=== PATIENT | female | born 1945 | race Caucasian/White ===

== ENCOUNTER 2017-01-12 09:36 | Inpatient (IN) | payer MEDICARE ==
[~2017-01-12] VITALS: Ht 167.6 cm; Wt 89.1 kg
[2017-01-12] MEDS ORDERED: ATOR20TA9 PO (10:27)
[2017-01-12] MEDS ORDERED: ALPR1TAB2 PO (10:27)
[2017-01-12] MEDS ORDERED: SODIUM CHLORIDE FLUSH 10ML SYR IVF ONE (10:30)
[2017-01-12] MEDS ORDERED: LOPERAMIDE 2 MG CAPSULE PO ONE (10:30)
[2017-01-12] MEDS ORDERED: ONDANSETRON 2MG/ML, 2ML IVPush ONE (10:30)
[2017-01-12] MEDS ORDERED: SODIUM CHLORIDE 0.9% 1,000ML IVBOLUS ONE ×2 (10:30)
[2017-01-12 10:34] LABS: HEMATOCRIT 38.9 % (34.6-47.8); HEMOGLOBIN 13.1 g/dL (11.7-16.4); WHITE BLOOD COUNT 15.9 x10^3/uL (3.4-10)
[2017-01-12 10:40] LABS: ASPARTATE AMINO TRANSFERASE 20 U/L (15-37); BLOOD UREA NITROGEN 17 mg/dL (7-18)
[2017-01-12] MEDS ORDERED: LOPERAMIDE 2 MG CAPSULE ONE (11:02)
[2017-01-12] MEDS ORDERED: ONDANSETRON 2MG/ML, 2ML ONE (11:03)
[2017-01-12] MEDS ORDERED: MORPHINE SULFATE 4 MG/ML, 1ML ONE (11:03)
[2017-01-12] MEDS ORDERED: MORPHINE SULFATE 4 MG/ML, 1ML IVPush ONE (12:00)
[2017-01-12] MEDS ORDERED: hydrALAzine 20 MG/ML, 1ML IVPush PRN (13:00)
[2017-01-12] MEDS ORDERED: MORPHINE SULFATE 4 MG/ML, 1ML IVPush PRN (14:00)
[2017-01-12] MEDS ORDERED: ONDANSETRON 2MG/ML, 2ML IVPush PRN (14:00)
[2017-01-12 14:15] VITALS: BP 101/58
[2017-01-12] MEDS: SODIUM CHLORIDE 0.9% 1,000 ML IV SCH ×2 (16:03→22:38)
[2017-01-12] MEDS: LOPERAMIDE 2 MG CAPSULE PO SCH ×2 (18:22→23:46)
[2017-01-12] MEDS: ENOXAPARIN 40 MG/0.4 ML SQ SCH (18:23)
[2017-01-12 19:40] VITALS: BP 102/65
[2017-01-12] MEDS: PANTOPRAZOLE 40 MG IV IVPush SCH (22:38)
[2017-01-12] MEDS: LORazepam 0.5MG TABLET PO PRN (23:45)
[2017-01-13 01:45] VITALS: BP 103/69
[2017-01-13] MEDS: SODIUM CHLORIDE 0.9% 1,000 ML IV SCH ×3 (04:42→18:49)
[2017-01-13] MEDS: LOPERAMIDE 2 MG CAPSULE PO SCH ×4 (05:45→23:23)
[2017-01-13 05:52] LABS: HEMATOCRIT 30.1 % (34.6-47.8); HEMOGLOBIN 10.1 g/dL (11.7-16.4); WHITE BLOOD COUNT 5.6 x10^3/uL (3.4-10)
[2017-01-13 05:58] LABS: ASPARTATE AMINO TRANSFERASE 17 U/L (15-37); BLOOD UREA NITROGEN 10 mg/dL (7-18)
[2017-01-13 07:16] VITALS: BP 107/66
[2017-01-13] MEDS: PANTOPRAZOLE 40 MG IV IVPush SCH ×2 (09:13→21:15)
[2017-01-13 13:09] VITALS: BP 101/56
[2017-01-13] MEDS: ENOXAPARIN 40 MG/0.4 ML SQ SCH (13:30)
[2017-01-13 20:02] VITALS: BP 107/67
[2017-01-13] MEDS: LORazepam 0.5MG TABLET PO PRN (23:20)
[2017-01-14] MEDS: SODIUM CHLORIDE 0.9% 1,000 ML IV SCH ×4 (01:16→20:58)
[2017-01-14 02:45] VITALS: BP 99/54
[2017-01-14] MEDS: LOPERAMIDE 2 MG CAPSULE PO SCH ×4 (05:44→22:54)
[2017-01-14 07:45] VITALS: BP 126/69
[2017-01-14] MEDS: PANTOPRAZOLE 40 MG IV IVPush SCH ×2 (08:17→20:58)
[2017-01-14] MEDS ORDERED: ONDA4TAB13 SL (08:22)
[2017-01-14] MEDS ORDERED: LOPE2CAP PO (08:22)
[2017-01-14] MEDS ORDERED: OMEP-110 PO (08:33)
[2017-01-14] MEDS ORDERED: TRAM-47 PO (08:33)
[2017-01-14] MEDS ORDERED: OMNIPAQUE 350 MG/ML, 100ML BOTTLE ONE (08:55)
[2017-01-14] MEDS: ENOXAPARIN 80 MG/0.8 ML SQ SCH ×2 (12:06→22:54)
[2017-01-14 12:22] VITALS: BP 138/77
[2017-01-14] MEDS ORDERED: ALPRazolam 1MG TABLET ONE (12:47)
[2017-01-14] MEDS: ALPRazolam 1MG TABLET PO PRN ×2 (12:49→23:07)
[2017-01-14] MEDS: WARFARIN 5 MG TABLET PO-COUM SCH (18:00)
[2017-01-14 19:55] VITALS: BP 104/66
[2017-01-14] MEDS: LORazepam 0.5MG TABLET PO PRN (23:07)
[2017-01-15] MEDS: LEVOTHYROXINE 88 MCG TABLET PO SCH (06:00)
[2017-01-15] MEDS: LOPERAMIDE 2 MG CAPSULE PO SCH ×3 (06:13→18:02)
[2017-01-15 06:24] LABS: HEMATOCRIT 28.6 % (34.6-47.8); HEMOGLOBIN 9.8 g/dL (11.7-16.4); WHITE BLOOD COUNT 5.3 x10^3/uL (3.4-10)
[2017-01-15 06:47] LABS: BLOOD UREA NITROGEN 4 mg/dL (7-18)
[2017-01-15 08:08] VITALS: BP 103/66
[2017-01-15] MEDS: SODIUM CHLORIDE 0.9% 1,000 ML IV SCH (09:00)
[2017-01-15] MEDS: PANTOPRAZOLE 40 MG IV IVPush SCH ×2 (09:29→21:53)
[2017-01-15] MEDS: ENOXAPARIN 80 MG/0.8 ML SQ SCH ×2 (10:43→21:55)
[2017-01-15] MEDS: POTASSIUM CHLORIDE 20 MEQ TAB.ER.PRT PO SCH ×2 (10:43→13:11)
[2017-01-15] MEDS ORDERED: OXYcodone/APAP 5/325MG TABLET PO PRN (11:00)
[2017-01-15 15:21] VITALS: BP 113/73
[2017-01-15] MEDS: WARFARIN 5 MG TABLET PO-COUM SCH (18:03)
[2017-01-15 19:36] VITALS: BP 117/72
[2017-01-16] MEDS: LOPERAMIDE 2 MG CAPSULE PO SCH ×5 (00:01→23:29)
[2017-01-16] MEDS: ALPRazolam 1MG TABLET PO PRN ×2 (00:01→23:30)
[2017-01-16 03:00] VITALS: BP 125/73
[2017-01-16 05:41] LABS: BLOOD UREA NITROGEN 5 mg/dL (7-18)
[2017-01-16] MEDS: LEVOTHYROXINE 88 MCG TABLET PO SCH (05:42)
[2017-01-16 08:20] VITALS: BP 129/62
[2017-01-16] MEDS: PANTOPRAZOLE 40 MG IV IVPush SCH ×2 (10:07→21:45)
[2017-01-16] MEDS: ENOXAPARIN 80 MG/0.8 ML SQ SCH ×2 (10:07→23:29)
[2017-01-16] MEDS ORDERED: POTASSIUM CHLORIDE 20 MEQ TAB.ER.PRT PO ONE (11:30)
[2017-01-16 13:14] VITALS: BP 137/79
[2017-01-16] MEDS: WARFARIN 5 MG TABLET PO-COUM SCH (18:19)
[2017-01-16 19:17] VITALS: BP 109/64
[2017-01-17 03:59] VITALS: BP 120/69
[2017-01-17 05:17] LABS: BLOOD UREA NITROGEN 7 mg/dL (7-18)
[2017-01-17] MEDS: LEVOTHYROXINE 88 MCG TABLET PO SCH (06:02)
[2017-01-17] MEDS: LOPERAMIDE 2 MG CAPSULE PO SCH ×2 (06:02→11:54)
[2017-01-17] MEDS: PANTOPRAZOLE 40 MG IV IVPush SCH (08:32)
[2017-01-17 09:14] VITALS: BP 107/65
[2017-01-17] MEDS ORDERED: ENOX80SY4 SQ (11:11)
[2017-01-17] MEDS ORDERED: WARF5TAB7 PO (11:11)
[2017-01-17] MEDS: ENOXAPARIN 80 MG/0.8 ML SQ SCH (11:40)
== END 2017-01-17 13:56 | disposition home or self-care (01) | DRG 871 ==
LOC: ED 11:38 → EDIP 11:39 → ED 11:54 → 3NE 13:23 → DCLOUNGE 01-17 13:39
PROVIDERS: ADMIT Hospitalist; ATTEND Internal Medicine
DX: A41.9 Sepsis, unspecified organism (principal); N17.0 Acute kidney failure with tubular necrosis; I26.99 Other pulmonary embolism without acute cor pulmonale; E43 Unspecified severe protein-calorie malnutrition; D68.69 Other thrombophilia; K52.9 Noninfective gastroenteritis and colitis, unspecified; Z68.31 Body mass index [BMI] 31.0-31.9, adult; E78.5 Hyperlipidemia, unspecified; E87.6 Hypokalemia; M16.11 Unilateral primary osteoarthritis, right hip; Z80.0 Family history of malignant neoplasm of digestive organs; Z87.891 Personal history of nicotine dependence; F41.9 Anxiety disorder, unspecified
CPT/HCPCS: 36415; 74160; 80048; 80053; 83735; 84100; 85025; 85610; 87046; 87324; 87328; 87329; 87899; 89055; 93970; 96361; 96374; 96375; J1650; J2405; Q9967; C9113; J7030

== ENCOUNTER 2017-01-27 18:22 | Emergency (ER) | payer MEDICARE ==
[~2017-01-27] VITALS: Ht 167.6 cm; Wt 82.5 kg
[~2017-01-27 18:22] MED LIST: ALPR1TAB2 PO; ATOR20TA9 PO; ENOX80SY4 SQ; LOPE2CAP PO; OMEP-110 PO; ONDA4TAB13 SL; TRAM-47 PO; WARF5TAB7 PO
[2017-01-27] MEDS ORDERED: SERT100T PO (18:53)
[2017-01-27] MEDS ORDERED: SIMV20TA3 PO (18:53)
[2017-01-27 19:15] LABS: HEMATOCRIT 33.7 % (34.6-47.8); HEMOGLOBIN 11.3 g/dL (11.7-16.4); WHITE BLOOD COUNT 7.7 x10^3/uL (3.4-10)
[2017-01-27 19:29] LABS: ASPARTATE AMINO TRANSFERASE 36 U/L (15-37); BLOOD UREA NITROGEN 20 mg/dL (7-18)
[2017-01-27 19:34] LABS: IS PT STATUS REG ER OR PRE ER? YES
[2017-01-27] MEDS ORDERED: NITROFURANTOIN (MACROBID) 100 MG CAPSULE PO ONE (21:30)
[2017-01-27 21:34] VITALS: BP 127/67
== END 2017-01-27 21:42 | disposition home or self-care (01) ==
LOC: ED 19:24
DX: R07.2 Precordial pain (principal); R31.0 Gross hematuria; I26.99 Other pulmonary embolism without acute cor pulmonale
CPT/HCPCS: 36415; 71010; 80053; 81001; 84484; 85025; 85610; 85730; 87086; 93005; 99285

== ENCOUNTER 2017-01-31 11:24 | Emergency (ER) | payer MEDICARE ==
[~2017-01-31] VITALS: Ht 167.6 cm; Wt 82.1 kg
[~2017-01-31 11:24] MED LIST changes: +SERT100T PO; +SIMV20TA3 PO
[2017-01-31] MEDS ORDERED: LEVO100T5 PO (12:26)
[2017-01-31 12:45] LABS: HEMATOCRIT 31.6 % (34.6-47.8); HEMOGLOBIN 10.7 g/dL (11.7-16.4); WHITE BLOOD COUNT 6.1 x10^3/uL (3.4-10)
[2017-01-31 12:53] LABS: ASPARTATE AMINO TRANSFERASE 20 U/L (15-37); BLOOD UREA NITROGEN 16 mg/dL (7-18)
[2017-01-31 13:13] LABS: GIANT PLATELETS 1+; LARGE PLATELETS 1+
[2017-01-31 14:44] VITALS: BP 128/68
[2017-01-31] MEDS ORDERED: OMNIPAQUE 350 MG/ML, 150 ML BOTTLE ONE (15:41)
== END 2017-01-31 16:33 | disposition home or self-care (01) ==
LOC: ED 12:02
DX: D17.71 Benign lipomatous neoplasm of kidney (principal); D62 Acute posthemorrhagic anemia; F41.9 Anxiety disorder, unspecified; E78.5 Hyperlipidemia, unspecified; Z87.891 Personal history of nicotine dependence; E03.9 Hypothyroidism, unspecified
CPT/HCPCS: 36415; 74178; 80053; 81001; 85025; 85610; 99285; Q9967

== ENCOUNTER → 2017-05-30 | Outpatient (CLI) | payer OTHER ==
[~2017-05-30] MED LIST changes: +LEVO100T5 PO; +REGADENOSON 0.4 MG/5 ML SYRINGE ONE
== END ==
LOC: CVU 06:42
PROVIDERS: ATTEND Internal Medicine Cardiovascular Disease
DX: I08.1 Rheumatic disorders of both mitral and tricuspid valves (principal); Z86.711 Personal history of pulmonary embolism
CPT/HCPCS: 78452; 93017; 93306; A9502; J2785

== ENCOUNTER → 2017-07-27 | Outpatient (CLI) | payer OTHER ==
[~2017-07-27] MED LIST changes: -REGADENOSON 0.4 MG/5 ML SYRINGE ONE; +WARF-36 PO; -WARF5TAB7 PO
== END | disposition home or self-care (01) ==
LOC: CVU 07:10
PROVIDERS: ATTEND Internal Medicine Cardiovascular Disease
DX: I82.409 Acute embolism and thrombosis of unspecified deep veins of unspecified lower extremity (principal); I87.2 Venous insufficiency (chronic) (peripheral); Z86.711 Personal history of pulmonary embolism
CPT/HCPCS: 93970

== ENCOUNTER → 2017-09-07 | Outpatient (CLI) | payer OTHER | END | disposition home or self-care (01) | LOC: CFH 09:50 | PROVIDERS: ATTEND Nurse Practitioner Family | DX: Z12.31 Encounter for screening mammogram for malignant neoplasm of breast (principal); N64.89 Other specified disorders of breast | CPT/HCPCS: 77067 ==